=== PATIENT | female | born 1965 | race Caucasian/White ===

== ENCOUNTER → 2017-10-21 | Outpatient (CLI) | payer BC ==
[2014-10-01 07:32] VITALS: BP 125/77
[~2017-10-21] MED LIST: IBUP-1227 PO; LISI1TAB5 PO; NORE-59 PO; NORE-81 PO; OMEP40CA5 PO; TERB250T PO; TIZA4TAB PO; VENL75CA PO
--- NOTE | 2017-11-06 12:05 | RAD ---
DATE: 10/21/2017 EXAM: DIGITAL SCREEN BILAT W/CAD HISTORY: Routine screening COMPARISON: 11/25/2013 This study was interpreted with the benefit of Computerized Aided Detection (CAD). The breast parenchyma shows scattered fibroglandular densities. Breast parenchyma level B. FINDINGS: There is a faint nodular shadow projected over the central aspect of the right breast on the cc view which was not evident on the previous study. No definite correlate is seen on the oblique view. This may be a developing nodule or a summation shadow. Other patchy opacities seen laterally in the right breast on the cc view appear unchanged since the previous exam. No other new or enlarging breast densities are seen. Scattered benign type calcifications are present. No suspicious microcalcifications have developed. IMPRESSION: Possible developing right breast nodule as described above. Diagnostic mammograms to include tomosynthesis imaging of the right breast is suggested for further evaluation. BI-RADS CATEGORY: 0 INCOMPLETE: NEEDS ADDITIONAL IMAGING EVALUATION AND/OR PRIOR MAMMOGRAMS FOR COMPARISON. RECOMMENDED FOLLOW-UP: ADD ADDITIONAL IMAGING PQRS compliance statement: Patient information was entered into a reminder system with a target due date for the next mammogram. Mammography is a sensitive method for finding small breast cancers, but it does not detect them all and is not a substitute for careful clinical examination. A negative mammogram does not negate a clinically suspicious finding and should not result in delay in biopsying a clinically suspicious abnormality. "Our facility is accredited by the [employer] Mammography [employer]."
== END | disposition home or self-care (01) ==
LOC: MAMMO 13:37
PROVIDERS: ATTEND Nurse Practitioner Family
DX: Z12.31 Encounter for screening mammogram for malignant neoplasm of breast (principal); I10 Essential (primary) hypertension
CPT/HCPCS: 77067

== ENCOUNTER → 2017-11-13 | Outpatient (CLI) | payer BC ==
[2014-10-01 07:32] VITALS: BP 125/77
--- NOTE | 2017-11-13 10:11 | RAD ---
DATE: 11/13/2017 EXAM: MAMMO JAKE DIAG RT, BREAST RIGHT HISTORY: Suspicious screening study COMPARISON: 10/21/2017, 11/25/2013 This study was interpreted with the benefit of Computerized Aided Detection (CAD). The breast parenchyma shows scattered fibroglandular densities. Breast parenchyma level B. FINDINGS: 3-D tomosynthesis imaging was performed. This confirms the presence of a 5 mm nodule located at the 12:00 location as demonstrated on oblique tomosynthesis image #46 and CC tomosynthesis image #36. Its margins are generally smooth. No suspicious microcalcifications are evident. Right breast ultrasound, 11/13/2017: A targeted ultrasound exam of the right breast was performed at the 12:00 location. Approximately 4 cm from the nipple a small hypoechoic oval-shaped nodule was identified measuring 2 x 3 x 3 cm. Its margins are smooth. There are low level internal echoes. There is no significant posterior acoustic enhancement or shadowing. This is probably a complicated cyst or tiny fibroadenoma. Circumscribed malignancy is much less likely. This probably corresponds in location to the mammographic abnormality. No other abnormality is seen in this region. IMPRESSION: Probable benign right breast nodule. Surveillance beginning with right breast ultrasound and right mammography in 6 months is suggested. BI-RADS CATEGORY: 3 PROBABLY BENIGN FINDING(S)-SHORT INTERVAL FOLLOW-UP SUGGESTED RECOMMENDED FOLLOW-UP: 6M 6 MONTH FOLLOW-UP PQRS compliance statement: Patient information was entered into a reminder system with a target due date for the next mammogram. Mammography is a sensitive method for finding small breast cancers, but it does not detect them all and is not a substitute for careful clinical examination. A negative mammogram does not negate a clinically suspicious finding and should not result in delay in biopsying a clinically suspicious abnormality. "Our facility is accredited by the [employer] Mammography [employer]."
== END | disposition home or self-care (01) ==
LOC: MAMMO 08:07
PROVIDERS: ATTEND Nurse Practitioner Family
DX: N63.11 Unspecified lump in the right breast, upper outer quadrant (principal); I10 Essential (primary) hypertension; Z79.1 Long term (current) use of non-steroidal anti-inflammatories (NSAID)
CPT/HCPCS: 76641; 77065; G0279; 77061